=== PATIENT | female | born 1940 | race Caucasian/White ===

== ENCOUNTER 2021-06-29 14:23 | Inpatient (IN) | payer MEDICARE ==
[2021-06-29 16:05] LABS: #Basophils 0.1 thou/uL (0.0-0.2); #Eosinphils 0.1 thou/uL (0.0-0.7); #Lymphocytes 2.8 thou/uL (1.20-3.40); #Monocytes 1.3 thou/uL (0.11-0.59); #Neutrophils 7.2 thou/uL (1.40-6.50); %Basophils 0.5 % (0.0-1.0); %Eosinophils 0.5 % (0.0-10.0); %Lymphocytes 24.5 % (21.0-51.0); %Monocytes 11.5 % (0.0-10.0); Hemoglobin 11.5 g/dL (12.0-16.0); Mean Corpuscular HGB CONC 32.7 g/dL (32.0-36.0); Mean Corpuscular Hemoglobin 26.3 pg (27.0-31.0); Mean Corpuscular Volume 80.3 fL (78.0-98.0); Mean Platelet Volume 8.3 fL (7.4-10.4); Platelet Count 260 thou/uL (130-400); RBC Distribution Width 18.4 % (11.5-14.5); Red Blood Cell (RBC) Count 4.37 mill/uL (4.20-5.40); White Blood Cell (WBC) Count 11.4 thou/uL (4.8-10.8)
[2021-06-29 16:35] LABS: ALT (SGPT) 11 U/L (8-55); AST (SGOT) 21 U/L (5-34); Albumin 4.2 g/dL (3.4-4.8); Alkaline Phosphatase 64 U/L (40-110); Anion Gap 16 mmol/L (10-20); BUN (Urea Nitrogen) 25 mg/dL (9.8-20.1); Bilirubin, Total 0.2 mg/dL (0.2-1.2); Calc. Creatinine Clearance 0 mL/min (70-130); Carbon Dioxide 26 mmol/L (23-31); Chloride 85 mmol/L (98-107); Globulin 3.8 g/dL (2.4-3.5); Potassium 4.8 mmol/L (3.5-5.1); Sodium 122 mmol/L (136-145)
[2021-06-29 16:44] LABS: Glucose 50 mg/dL (83-110)
[2021-06-29 16:49] LABS: CKMB 4.3 ng/mL (0-6.6)
[2021-06-29] MEDS ORDERED: Nitroglycerin 2% Ointment 1 INCH/1 GM Packet ONE (16:49)
[2021-06-29] MEDS ORDERED: hydrALAZINE 20 MG/ML VIAL ONE (16:49)
[2021-06-29] MEDS ORDERED: Dextrose 50% Abboject 50 ML SYRINGE ONE (16:54)
[2021-06-29] MEDS ORDERED: Aspirin 325 MG TAB ONE (17:05)
[2021-06-29] MEDS ORDERED: Ondansetron PF 4 MG/2 ML Vial IVP PRN (17:34)
[2021-06-29 17:54] LABS: Bacteria/HPF 4+ HPF (None Seen); Bilirubin Negative (Negative); Blood, Urine 1+ (Negative); Clarity Turbid (Clear); Glucose, Urine (Dipstick) Normal (Negative); Ketone, Urine Negative (Negative); Leukocyte 500 Leu/uL (Negative); Nitrite Negative (Negative); Protein, Urine (Dipstick) 70 mg/dL (Neg-Trace); Squamous Epithelial 0-3 HPF (0-3); Urobilinogen Normal mg/dL (Less than 2); WBC/HPF Greater than 50 HPF (0-3); pH, Urine 6.5 (5.0-9.0)
[2021-06-29] MEDS ORDERED: Carvedilol 25 MG TAB PO SCH (18:30)
[2021-06-29] MEDS ORDERED: cloNIDine 0.1 MG TAB PO SCH (18:30)
[2021-06-29] MEDS ORDERED: MEROPENEM 1 GM/50 ML 1 GM in Premix Bag 1 BAG IVPB SCH (19:00)
[2021-06-29 19:23] LABS: Anion Gap 15 mmol/L (10-20); BUN (Urea Nitrogen) 27 mg/dL (9.8-20.1); Calc. Creatinine Clearance 0 mL/min (70-130); Calcium 9.7 mg/dL (7.8-10.44); Carbon Dioxide 26 mmol/L (23-31); Chloride 85 mmol/L (98-107); Glucose 109 mg/dL (83-110); Potassium 4.6 mmol/L (3.5-5.1); Sodium 121 mmol/L (136-145)
[2021-06-29 19:28] LABS: Troponin I 0.047 ng/mL (< 0.028)
[2021-06-29] MEDS ORDERED: Apixaban 5 MG TAB PO SCH (21:00)
[2021-06-29 21:23] LABS: SARS-CoV-2 NAA Rapid Test Not Detected (NotDetected)
[2021-06-29 21:26] LABS: Anion Gap 14 mmol/L (10-20); BUN (Urea Nitrogen) 27 mg/dL (9.8-20.1); Calc. Creatinine Clearance 0 mL/min (70-130); Calcium 9.8 mg/dL (7.8-10.44); Carbon Dioxide 28 mmol/L (23-31); Chloride 86 mmol/L (98-107); Glucose 99 mg/dL (83-110); Potassium 4.5 mmol/L (3.5-5.1); Sodium 123 mmol/L (136-145)
[2021-06-29 21:32] LABS: Troponin I 0.073 ng/mL (< 0.028)
[2021-06-29] MEDS ORDERED: cloNIDine 0.1 MG TAB ONE (22:42)
[2021-06-29] MEDS: cloNIDine 0.1 MG TAB PO SCH (22:48)
[2021-06-29 23:51] VITALS: BMI 42.3
[2021-06-30] MEDS ORDERED: MEROPENEM 1 GM/50 ML 1 GM in Premix Bag 1 BAG IVPB SCH (00:15)
[2021-06-30 02:08] LABS: Anion Gap 15 mmol/L (10-20); BUN (Urea Nitrogen) 31 mg/dL (9.8-20.1); Calc. Creatinine Clearance 51 mL/min (70-130); Calcium 10.1 mg/dL (7.8-10.44); Carbon Dioxide 27 mmol/L (23-31); Chloride 86 mmol/L (98-107); Potassium 4.2 mmol/L (3.5-5.1); Sodium 124 mmol/L (136-145)
[2021-06-30 02:13] LABS: Glucose 43 mg/dL (83-110)
[2021-06-30] MEDS ORDERED: Dextrose 5% in Water 1,000 ML IV PRN (07:47)
[2021-06-30] MEDS ORDERED: Dextrose 50% Abboject 50 ML SYRINGE SLOW IVP PRN (07:47)
[2021-06-30 08:32] LABS: Anion Gap 14 mmol/L (10-20); BUN (Urea Nitrogen) 31 mg/dL (9.8-20.1); Calc. Creatinine Clearance 46 mL/min (70-130); Calcium 9.7 mg/dL (7.8-10.44); Carbon Dioxide 28 mmol/L (23-31); Chloride 84 mmol/L (98-107); Glucose 135 mg/dL (83-110); Potassium 4.6 mmol/L (3.5-5.1); Sodium 121 mmol/L (136-145)
[2021-06-30] MEDS: MEROPENEM 1 GM/50 ML 1 GM in Premix Bag 1 BAG IVPB SCH ×2 (10:08→17:07)
[2021-06-30] MEDS: Carvedilol 6.25 MG TAB PO SCH ×2 (10:09→17:08)
[2021-06-30] MEDS ORDERED: cloNIDine 0.1 MG TAB ONE (10:10)
[2021-06-30] MEDS ORDERED: TOLVAPTAN 30 MG TAB PO SCH (10:15)
[2021-06-30 10:18] LABS: Anion Gap 17 mmol/L (10-20); BUN (Urea Nitrogen) 29 mg/dL (9.8-20.1); Calc. Creatinine Clearance 50 mL/min (70-130); Calcium 9.6 mg/dL (7.8-10.44); Carbon Dioxide 24 mmol/L (23-31); Chloride 86 mmol/L (98-107); Glucose 139 mg/dL (83-110); Potassium 4.5 mmol/L (3.5-5.1); Sodium 122 mmol/L (136-145)
[2021-06-30] MEDS: cloNIDine 0.1 MG TAB PO SCH ×3 (10:19→20:31)
[2021-06-30 13:49] LABS: Anion Gap 12 mmol/L (10-20); BUN (Urea Nitrogen) 31 mg/dL (9.8-20.1); Calc. Creatinine Clearance 48 mL/min (70-130); Calcium 9.5 mg/dL (7.8-10.44); Carbon Dioxide 30 mmol/L (23-31); Chloride 84 mmol/L (98-107); Glucose 131 mg/dL (83-110); Potassium 4.5 mmol/L (3.5-5.1); Sodium 121 mmol/L (136-145)
[2021-06-30 17:49] LABS: Anion Gap 11 mmol/L (10-20); BUN (Urea Nitrogen) 32 mg/dL (9.8-20.1); Calc. Creatinine Clearance 50 mL/min (70-130); Calcium 9.5 mg/dL (7.8-10.44); Carbon Dioxide 31 mmol/L (23-31); Chloride 83 mmol/L (98-107); Glucose 86 mg/dL (83-110); Potassium 4.3 mmol/L (3.5-5.1); Sodium 121 mmol/L (136-145)
[2021-06-30 20:17] LABS: Magnesium 1.6 mg/dL (1.6-2.6)
[2021-06-30 22:17] LABS: Anion Gap 14 mmol/L (10-20); BUN (Urea Nitrogen) 32 mg/dL (9.8-20.1); Calc. Creatinine Clearance 50 mL/min (70-130); Calcium 9.6 mg/dL (7.8-10.44); Carbon Dioxide 30 mmol/L (23-31); Chloride 84 mmol/L (98-107); Glucose 91 mg/dL (83-110); Potassium 4.8 mmol/L (3.5-5.1); Sodium 123 mmol/L (136-145)
[2021-07-01] MEDS: MEROPENEM 1 GM/50 ML 1 GM in Premix Bag 1 BAG IVPB SCH ×3 (02:34→17:07)
[2021-07-01 05:16] LABS: Anion Gap 17 mmol/L (10-20); BUN (Urea Nitrogen) 31 mg/dL (9.8-20.1); Calc. Creatinine Clearance 55 mL/min (70-130); Carbon Dioxide 26 mmol/L (23-31); Chloride 86 mmol/L (98-107); Glucose 70 mg/dL (83-110); Potassium 4.6 mmol/L (3.5-5.1); Sodium 124 mmol/L (136-145)
[2021-07-01 05:17] LABS: Calcium 9.7 mg/dL (7.8-10.44)
[2021-07-01] MEDS: hydrALAZINE 20 MG/ML VIAL SLOW IVP PRN ×2 (05:55→22:11)
[2021-07-01] MEDS ORDERED: Electrolyte Replacement Protocol 1 EACH FS PRN (06:42)
[2021-07-01] MEDS: cloNIDine 0.1 MG TAB PO SCH ×3 (09:03→22:09)
[2021-07-01] MEDS: Carvedilol 6.25 MG TAB PO SCH ×2 (09:03→17:07)
[2021-07-01] MEDS ORDERED: Tolvaptan 15 MG TAB PO SCH (11:30)
[2021-07-01] MEDS ORDERED: TOLVAPTAN 30 MG TAB PO SCH (13:30)
[2021-07-01 16:03] LABS: Anion Gap 15 mmol/L (10-20); BUN (Urea Nitrogen) 29 mg/dL (9.8-20.1); Calc. Creatinine Clearance 57 mL/min (70-130); Carbon Dioxide 29 mmol/L (23-31); Chloride 85 mmol/L (98-107); Glucose 125 mg/dL (83-110); Potassium 4.8 mmol/L (3.5-5.1); Sodium 124 mmol/L (136-145)
[2021-07-01 19:51] LABS: Anion Gap 14 mmol/L (10-20); BUN (Urea Nitrogen) 31 mg/dL (9.8-20.1); Calc. Creatinine Clearance 55 mL/min (70-130); Calcium 9.6 mg/dL (7.8-10.44); Carbon Dioxide 26 mmol/L (23-31); Chloride 85 mmol/L (98-107); Glucose 186 mg/dL (83-110); Magnesium 1.7 mg/dL (1.6-2.6); Potassium 4.7 mmol/L (3.5-5.1); Sodium 120 mmol/L (136-145)
[2021-07-01 22:27] LABS: Lactic Acid 0.7 mmol/L (0.5-2.2)
[2021-07-01 22:31] LABS: ALT (SGPT) 17 U/L (8-55); AST (SGOT) 27 U/L (5-34); Albumin 3.8 g/dL (3.4-4.8); Alkaline Phosphatase 74 U/L (40-110); Anion Gap 16 mmol/L (10-20); BUN (Urea Nitrogen) 32 mg/dL (9.8-20.1); Bilirubin, Total 0.3 mg/dL (0.2-1.2); Calc. Creatinine Clearance 54 mL/min (70-130); Calcium 9.7 mg/dL (7.8-10.44); Carbon Dioxide 26 mmol/L (23-31); Chloride 86 mmol/L (98-107); Globulin 3.3 g/dL (2.4-3.5); Glucose 163 mg/dL (83-110); Potassium 4.5 mmol/L (3.5-5.1); Protein, Total 7.1 g/dL (5.8-8.1); Sodium 123 mmol/L (136-145)
[2021-07-01 22:41] LABS: Band 6 % (5-11); Eosinophils 3 % (0-10); Hemoglobin 10.4 g/dL (12.0-16.0); Lymphocytes 24 % (21-51); MDiff Complete? YES; Mean Corpuscular Hemoglobin 26.4 pg (27.0-31.0); Mean Corpuscular Volume 82.7 fL (78.0-98.0); Mean Platelet Volume 7.9 fL (7.4-10.4); Monocytes 12 % (0-10); Neutrophil 55 % (42-75); Platelet Count 223 thou/uL (130-400); RBC Distribution Width 18.3 % (11.5-14.5); Red Blood Cell (RBC) Count 3.92 mill/uL (4.20-5.40); White Blood Cell (WBC) Count 5.9 thou/uL (4.8-10.8)
[2021-07-01] MEDS ORDERED: Furosemide 20 MG/2 ML VIAL SLOW IVP SCH (22:45)
[2021-07-01 22:58] LABS: Troponin I 0.091 ng/mL (< 0.028)
[2021-07-01] MEDS ORDERED: Sodium Chloride 0.9% 1,000 ML IV SCH (23:00)
[2021-07-02] MEDS: MEROPENEM 1 GM/50 ML 1 GM in Premix Bag 1 BAG IVPB SCH ×3 (00:06→16:59)
[2021-07-02] MEDS: hydrALAZINE 20 MG/ML VIAL SLOW IVP PRN (00:18)
[2021-07-02] MEDS ORDERED: Labetalol HCl 100 MG/20 ML VIAL SLOW IVP PRN (04:34)
[2021-07-02 05:07] LABS: Anion Gap 15 mmol/L (10-20); BUN (Urea Nitrogen) 33 mg/dL (9.8-20.1); Calc. Creatinine Clearance 59 mL/min (70-130); Carbon Dioxide 27 mmol/L (23-31); Chloride 88 mmol/L (98-107); Glucose 142 mg/dL (83-110); Potassium 4.4 mmol/L (3.5-5.1); Sodium 126 mmol/L (136-145)
[2021-07-02] MEDS ORDERED: Non-Formulary Item 1 EACH (Levothyroxine Sodium [Levothyroxine] 75 MCG Capsule) PO SCH (09:00)
[2021-07-02] MEDS ORDERED: Spironolactone 100 MG TAB PO SCH (09:00)
[2021-07-02] MEDS: cloNIDine 0.1 MG TAB PO SCH ×3 (09:32→21:39)
[2021-07-02] MEDS: Oxybutynin 5 MG TAB PO SCH (09:33)
[2021-07-02] MEDS: Apixaban 5 MG TAB PO SCH ×2 (09:33→21:40)
[2021-07-02] MEDS: predniSONE 5 MG TAB PO SCH (09:33)
[2021-07-02] MEDS: Carvedilol 6.25 MG TAB PO SCH ×2 (09:33→16:59)
[2021-07-02] MEDS ORDERED: Alendronate Sodium 70 mg Tablet PO SCH (11:00)
[2021-07-02] MEDS: Spironolactone 100 MG TAB PO SCH (21:40)
[2021-07-02] MEDS: LACTINEX 1 TAB PO SCH (21:40)
[2021-07-03] MEDS: MEROPENEM 1 GM/50 ML 1 GM in Premix Bag 1 BAG IVPB SCH ×2 (00:08→09:42)
[2021-07-03 04:53] LABS: Hemoglobin 9.9 g/dL (12.0-16.0); Mean Corpuscular HGB CONC 31.6 g/dL (32.0-36.0); Mean Corpuscular Hemoglobin 26.1 pg (27.0-31.0); Mean Corpuscular Volume 82.6 fL (78.0-98.0); Mean Platelet Volume 7.8 fL (7.4-10.4); Platelet Count 211 thou/uL (130-400); RBC Distribution Width 18.6 % (11.5-14.5); Red Blood Cell (RBC) Count 3.79 mill/uL (4.20-5.40); White Blood Cell (WBC) Count 4.5 thou/uL (4.8-10.8)
[2021-07-03 04:58] LABS: Anion Gap 14 mmol/L (10-20); BUN (Urea Nitrogen) 39 mg/dL (9.8-20.1); Calc. Creatinine Clearance 50 mL/min (70-130); Calcium 9.9 mg/dL (7.8-10.44); Carbon Dioxide 29 mmol/L (23-31); Chloride 89 mmol/L (98-107); Glucose 130 mg/dL (83-110); Potassium 4.5 mmol/L (3.5-5.1); Sodium 127 mmol/L (136-145)
[2021-07-03] MEDS: Levothyroxine Sodium 75 MCG TAB PO SCH (05:11)
[2021-07-03 05:29] LABS: Band 2 % (5-11); Eosinophils 7 % (0-10); Lymphocytes 28 % (21-51); MDiff Complete? YES; Metamyelocyte 1 % (0-0); Monocytes 12 % (0-10); Neutrophil 50 % (42-75)
[2021-07-03] MEDS: sulfaSALAzine 500 MG TAB PO SCH (09:43)
[2021-07-03] MEDS: LACTINEX 1 TAB PO SCH ×2 (09:44→21:28)
[2021-07-03] MEDS: cloNIDine 0.1 MG TAB PO SCH ×3 (09:44→21:27)
[2021-07-03] MEDS: Apixaban 5 MG TAB PO SCH ×2 (09:45→21:27)
[2021-07-03] MEDS: Carvedilol 6.25 MG TAB PO SCH ×2 (09:45→17:25)
[2021-07-03] MEDS: Spironolactone 100 MG TAB PO SCH ×2 (09:45→21:28)
[2021-07-03] MEDS: Oxybutynin 5 MG TAB PO SCH (09:45)
[2021-07-03] MEDS: predniSONE 5 MG TAB PO SCH (09:47)
[2021-07-03] MEDS ORDERED: Sodium Chloride 1 GM TAB PO SCH (11:30)
[2021-07-03] MEDS: Cefepime 1 GM in Sodium Chloride 0.9% 100 ML IVPB SCH (13:36)
[2021-07-03] MEDS: Sodium Chloride 1 GM TAB PO SCH ×2 (21:27→21:28)
[2021-07-04] MEDS ORDERED: Sodium Chloride 0.9% 10 ML ONE (01:09)
[2021-07-04] MEDS: Cefepime 1 GM in Sodium Chloride 0.9% 100 ML IVPB SCH ×2 (01:12→13:56)
[2021-07-04 04:38] LABS: Hemoglobin 9.4 g/dL (12.0-16.0); Mean Corpuscular HGB CONC 31.7 g/dL (32.0-36.0); Mean Corpuscular Hemoglobin 26.3 pg (27.0-31.0); Mean Platelet Volume 8.1 fL (7.4-10.4); Platelet Count 202 thou/uL (130-400); RBC Distribution Width 18.6 % (11.5-14.5); Red Blood Cell (RBC) Count 3.57 mill/uL (4.20-5.40); White Blood Cell (WBC) Count 3.7 thou/uL (4.8-10.8)
[2021-07-04 04:48] LABS: Anion Gap 13 mmol/L (10-20); BUN (Urea Nitrogen) 37 mg/dL (9.8-20.1); Calc. Creatinine Clearance 58 mL/min (70-130); Calcium 9.9 mg/dL (7.8-10.44); Carbon Dioxide 28 mmol/L (23-31); Chloride 93 mmol/L (98-107); Glucose 151 mg/dL (83-110); Potassium 4.9 mmol/L (3.5-5.1); Sodium 129 mmol/L (136-145)
[2021-07-04] MEDS: Levothyroxine Sodium 75 MCG TAB PO SCH (05:54)
[2021-07-04 06:01] LABS: Band 13 % (5-11); Eosinophils 3 % (0-10); Lymphocytes 36 % (21-51); MDiff Complete? YES; Monocytes 9 % (0-10); Neutrophil 38 % (42-75)
[2021-07-04] MEDS: cloNIDine 0.1 MG TAB PO SCH ×3 (08:23→20:35)
[2021-07-04] MEDS: Carvedilol 6.25 MG TAB PO SCH (08:25)
[2021-07-04] MEDS: LACTINEX 1 TAB PO SCH ×2 (08:25→20:39)
[2021-07-04] MEDS: Oxybutynin 5 MG TAB PO SCH (08:25)
[2021-07-04] MEDS: predniSONE 5 MG TAB PO SCH (08:25)
[2021-07-04] MEDS: Apixaban 5 MG TAB PO SCH ×2 (08:25→20:39)
[2021-07-04] MEDS: Spironolactone 100 MG TAB PO SCH ×2 (08:25→20:39)
[2021-07-04] MEDS: sulfaSALAzine 500 MG TAB PO SCH (08:25)
[2021-07-04] MEDS: Sodium Chloride 1 GM TAB PO SCH ×4 (08:26→20:45)
[2021-07-05] MEDS: Cefepime 1 GM in Sodium Chloride 0.9% 100 ML IVPB SCH ×2 (01:06→14:57)
[2021-07-05 04:37] LABS: Hemoglobin 9.2 g/dL (12.0-16.0); Mean Corpuscular HGB CONC 32.1 g/dL (32.0-36.0); Mean Corpuscular Hemoglobin 26.8 pg (27.0-31.0); Mean Corpuscular Volume 83.6 fL (78.0-98.0); Mean Platelet Volume 7.8 fL (7.4-10.4); Platelet Count 170 thou/uL (130-400); RBC Distribution Width 18.5 % (11.5-14.5); Red Blood Cell (RBC) Count 3.44 mill/uL (4.20-5.40); White Blood Cell (WBC) Count 4.3 thou/uL (4.8-10.8)
[2021-07-05 04:51] LABS: Anion Gap 10 mmol/L (10-20); BUN (Urea Nitrogen) 28 mg/dL (9.8-20.1); Calc. Creatinine Clearance 72 mL/min (70-130); Carbon Dioxide 30 mmol/L (23-31); Chloride 95 mmol/L (98-107); Glucose 139 mg/dL (83-110); Potassium 4.4 mmol/L (3.5-5.1); Sodium 131 mmol/L (136-145)
[2021-07-05 05:04] LABS: Band 5 % (5-11); Lymphocytes 38 % (21-51); MDiff Complete? YES; Monocytes 15 % (0-10); Neutrophil 42 % (42-75)
[2021-07-05] MEDS: Levothyroxine Sodium 75 MCG TAB PO SCH (05:55)
[2021-07-05] MEDS: Sodium Chloride 1 GM TAB PO SCH ×4 (09:03→21:05)
[2021-07-05] MEDS: cloNIDine 0.1 MG TAB PO SCH ×3 (09:03→21:03)
[2021-07-05] MEDS: Oxybutynin 5 MG TAB PO SCH (09:04)
[2021-07-05] MEDS: Apixaban 5 MG TAB PO SCH ×2 (09:04→21:04)
[2021-07-05] MEDS: Spironolactone 100 MG TAB PO SCH ×2 (09:05→21:04)
[2021-07-05] MEDS: sulfaSALAzine 500 MG TAB PO SCH (09:05)
[2021-07-05] MEDS: predniSONE 5 MG TAB PO SCH (09:05)
[2021-07-05] MEDS: LACTINEX 1 TAB PO SCH ×2 (09:37→21:04)
[2021-07-05] MEDS ORDERED: Amlodipine 5 MG TAB PO SCH (17:00)
[2021-07-06] MEDS: Cefepime 1 GM in Sodium Chloride 0.9% 100 ML IVPB SCH ×2 (00:31→11:57)
[2021-07-06 04:38] LABS: Anion Gap 14 mmol/L (10-20); BUN (Urea Nitrogen) 22 mg/dL (9.8-20.1); Calc. Creatinine Clearance 77 mL/min (70-130); Carbon Dioxide 23 mmol/L (23-31); Chloride 100 mmol/L (98-107); Potassium 4.6 mmol/L (3.5-5.1); Sodium 132 mmol/L (136-145)
[2021-07-06 04:39] LABS: Glucose 137 mg/dL (83-110)
[2021-07-06 05:08] LABS: Eosinophils 1 % (0-10); Hemoglobin 9.4 g/dL (12.0-16.0); Hypochromia SLIGHT = 6-15 cells (100X) (0-5/hpf); Lymphocytes 41 % (21-51); MDiff Complete? YES; Mean Corpuscular HGB CONC 31.7 g/dL (32.0-36.0); Mean Corpuscular Hemoglobin 26.6 pg (27.0-31.0); Monocytes 12 % (0-10); Neutrophil 36 % (42-75); Platelet Count 188 thou/uL (130-400); Platelet Morphology Comment Appears Adequate; RBC Distribution Width 18.6 % (11.5-14.5); Reactive Lymphocytes 10 % (0-10); Red Blood Cell (RBC) Count 3.51 mill/uL (4.20-5.40); White Blood Cell (WBC) Count 4.1 thou/uL (4.8-10.8)
[2021-07-06] MEDS: Levothyroxine Sodium 75 MCG TAB PO SCH (05:19)
[2021-07-06] MEDS: LACTINEX 1 TAB PO SCH (08:16)
[2021-07-06] MEDS: Apixaban 5 MG TAB PO SCH (08:16)
[2021-07-06] MEDS: sulfaSALAzine 500 MG TAB PO SCH (08:16)
[2021-07-06] MEDS: Oxybutynin 5 MG TAB PO SCH (08:16)
[2021-07-06] MEDS: cloNIDine 0.1 MG TAB PO SCH (08:16)
[2021-07-06] MEDS: predniSONE 5 MG TAB PO SCH (08:17)
[2021-07-06] MEDS: Spironolactone 100 MG TAB PO SCH (08:17)
[2021-07-06] MEDS: Sodium Chloride 1 GM TAB PO SCH ×2 (08:17→08:34)
[2021-07-06 11:15] VITALS: BP 168/80; TEMP 98.2
== END 2021-07-06 15:03 | DRG 637 ==
LOC: ERS 14:23 → ERHOLD 17:03 → 2NO 06-30 15:02
PROVIDERS: ADMIT Internal Medicine; ATTEND Family Medicine
DX: E11.649 Type 2 diabetes mellitus with hypoglycemia without coma (principal); G93.41 Metabolic encephalopathy; E87.1 Hypo-osmolality and hyponatremia; N39.0 Urinary tract infection, site not specified; I13.0 Hypertensive heart and chronic kidney disease with heart failure and stage 1 through stage 4 chronic kidney disease, or unspecified chronic kidney disease; I48.20 Chronic atrial fibrillation, unspecified; Z68.41 Body mass index [BMI] 40.0-44.9, adult; Z20.822 Contact with and (suspected) exposure to COVID-19; W18.30XA Fall on same level, unspecified, initial encounter; S00.83XA Contusion of other part of head, initial encounter; J44.9 Chronic obstructive pulmonary disease, unspecified; Z96.0 Presence of urogenital implants; E66.01 Morbid (severe) obesity due to excess calories; I16.0 Hypertensive urgency; I50.9 Heart failure, unspecified; D63.1 Anemia in chronic kidney disease; N18.30 Chronic kidney disease, stage 3 unspecified; E11.22 Type 2 diabetes mellitus with diabetic chronic kidney disease; G47.33 Obstructive sleep apnea (adult) (pediatric); N17.9 Acute kidney failure, unspecified; B96.5 Pseudomonas (aeruginosa) (mallei) (pseudomallei) as the cause of diseases classified elsewhere; M06.9 Rheumatoid arthritis, unspecified; M85.80 Other specified disorders of bone density and structure, unspecified site; I44.0 Atrioventricular block, first degree; Z79.4 Long term (current) use of insulin; Z87.440 Personal history of urinary (tract) infections; Z90.710 Acquired absence of both cervix and uterus; Z90.49 Acquired absence of other specified parts of digestive tract; Z90.10 Acquired absence of unspecified breast and nipple; Z79.52 Long term (current) use of systemic steroids; Z79.899 Other long term (current) drug therapy; Z79.01 Long term (current) use of anticoagulants; Z85.038 Personal history of other malignant neoplasm of large intestine; Z92.21 Personal history of antineoplastic chemotherapy; Z92.3 Personal history of irradiation; Z86.73 Personal history of transient ischemic attack (TIA), and cerebral infarction without residual deficits; Z82.49 Family history of ischemic heart disease and other diseases of the circulatory system
CPT/HCPCS: 0240U; 36415; 36416; 51701; 70450; 80048; 80053; 81003; 81015; 82553; 83605; 83735; 83880; 83930; 83935; 84300; 84443; 84484; 85025; 87040; 87077; 87086; 87186; 93005; 93010; 93306; 96374; 96375; J0360; J0692; J1940; J2185; J3490; J7512

== ENCOUNTER 2021-11-01 06:14 | Inpatient (IN) | payer MEDICARE ==
[2021-11-01 07:08] LABS: #Eosinphils 0.1 thou/uL (0.0-0.7); #Lymphocytes 1.9 thou/uL (1.20-3.40); #Monocytes 0.9 thou/uL (0.11-0.59); #Neutrophils 3.5 thou/uL (1.40-6.50); %Basophils 0.3 % (0.0-1.0); %Lymphocytes 30.2 % (21.0-51.0); %Neutrophils 54.5 % (42.0-75.0); Hemoglobin 8.1 g/dL (12.0-16.0); Mean Corpuscular HGB CONC 30.8 g/dL (32.0-36.0); Mean Corpuscular Hemoglobin 24.9 pg (27.0-31.0); Mean Platelet Volume 8.2 fL (7.4-10.4); Platelet Count 222 thou/uL (130-400); Red Blood Cell (RBC) Count 3.23 mill/uL (4.20-5.40); White Blood Cell (WBC) Count 6.4 thou/uL (4.8-10.8)
[2021-11-01 07:28] LABS: ALT (SGPT) 12 U/L (8-55); AST (SGOT) 15 U/L (5-34); Albumin 3.5 g/dL (3.4-4.8); Alkaline Phosphatase 77 U/L (40-110); Anion Gap 16 mmol/L (10-20); BUN (Urea Nitrogen) 25 mg/dL (9.8-20.1); Bilirubin, Total 0.2 mg/dL (0.2-1.2); Calc. Creatinine Clearance 0 mL/min (70-130); Calcium 8.4 mg/dL (7.8-10.44); Carbon Dioxide 24 mmol/L (23-31); Chloride 99 mmol/L (98-107); Globulin 3.1 g/dL (2.4-3.5); Glucose 306 mg/dL (83-110); Lipase 29 U/L (8-78); Magnesium 1.3 mg/dL (1.6-2.6); Potassium 4.6 mmol/L (3.5-5.1); Protein, Total 6.6 g/dL (5.8-8.1); Sodium 134 mmol/L (136-145)
[2021-11-01 08:16] LABS: Bacteria/HPF 2+ HPF (None Seen); Bilirubin Negative (Negative); Blood, Urine Negative (Negative); Clarity Turbid (Clear); Glucose, Urine (Dipstick) 300 mg/dL (Negative); Ketone, Urine Negative (Negative); Leukocyte 500 Leu/uL (Negative); Nitrite 1+ (Negative); Protein, Urine (Dipstick) Negative (Neg-Trace); RBC/HPF 0-3 HPF (0-3); Specific Gravity, Urine 1.007 (1.002-1.036); Squamous Epithelial None Seen HPF (0-3); Urobilinogen Normal mg/dL (Less than 2); WBC/HPF Greater than 50 HPF (0-3); pH, Urine 6.5 (5.0-9.0)
[2021-11-01] MEDS ORDERED: cefTRIAXone\\ROCEPHIN 2 GM VIAL ONE (09:34)
[2021-11-01 10:31] LABS: CKMB 2.1 ng/mL (0-6.6)
[2021-11-01] MEDS ORDERED: Dextrose 5% in Water 1,000 ML IV PRN (12:26)
[2021-11-01] MEDS ORDERED: Dextrose 50% Abboject 50 ML SYRINGE SLOW IVP PRN (12:26)
[2021-11-01] MEDS ORDERED: HumaLOG 300 UNITS/3 ML VIAL SC PRN (12:26)
[2021-11-01] MEDS ORDERED: Magnesium 2 GM/50 ML 2 GM in Premix Bag 1 BAG IVPB SCH (12:30)
[2021-11-01 13:12] LABS: Troponin I 0.042 ng/mL (< 0.028)
[2021-11-01] MEDS ORDERED: Magnesium 2 GM/50 ML BAG (IN WATER) ONE (14:12)
[2021-11-01 16:02] LABS: Troponin I 0.047 ng/mL (< 0.028)
[2021-11-01] MEDS ORDERED: Polyethylene Glycol 3350 17 GM Packet PO PRN (16:09)
[2021-11-01] MEDS ORDERED: Alendronate Sodium 70 mg Tablet PO SCH (16:15)
[2021-11-01 20:55] VITALS: BMI 46.4
[2021-11-01] MEDS: Spironolactone 100 MG TAB PO SCH (21:50)
[2021-11-01] MEDS: Oxybutynin 5 MG TAB PO SCH (21:50)
[2021-11-01] MEDS: Apixaban 5 MG TAB PO SCH (21:50)
[2021-11-01] MEDS: cloNIDine 0.1 MG TAB PO SCH (21:50)
[2021-11-01] MEDS: Carvedilol 6.25 MG TAB PO SCH (21:51)
[2021-11-01] MEDS: DULoxetine 60 MG CAP PO SCH (21:51)
[2021-11-01] MEDS: sulfaSALAzine 500 MG TAB PO SCH (21:51)
[2021-11-01] MEDS: Lantus 1000 UNITS/10 ML VIAL SC SCH (21:53)
[2021-11-02] MEDS: Levothyroxine Sodium 75 MCG TAB PO SCH (05:25)
[2021-11-02 05:31] LABS: Magnesium 1.9 mg/dL (1.6-2.6)
[2021-11-02] MEDS ORDERED: Cepastat Lozenges 1 LOZ PO PRN (06:45)
[2021-11-02] MEDS ORDERED: GUAIFENESIN SF SOLN 200 MG/10 ML UDCUP PO PRN (06:45)
[2021-11-02] MEDS ORDERED: Loratadine 10 MG TAB PO PRN (06:45)
[2021-11-02] MEDS ORDERED: Ondansetron ODT 4 MG TAB SL PRN (06:45)
[2021-11-02] MEDS ORDERED: Hydrocerin (Eucerin) Cream 120 gm Jar TOP PRN (06:45)
[2021-11-02] MEDS ORDERED: Artificial Tear Sol 15 ML BOT EA EYE PRN (06:45)
[2021-11-02] MEDS ORDERED: Sodium Chloride 0.65% Nasal 44 ML BOT EA NARE PRN (06:45)
[2021-11-02] MEDS ORDERED: HYDROcodone/Acetaminophen 5/325 mg Tablet PO PRN (06:45)
[2021-11-02] MEDS ORDERED: Ondansetron PF 4 MG/2 ML Vial IVP PRN (06:45)
[2021-11-02] MEDS ORDERED: hydrALAZINE 20 MG/ML VIAL SLOW IVP PRN (06:45)
[2021-11-02] MEDS ORDERED: Loperamide HCl 2 MG CAP PO PRN (06:45)
[2021-11-02] MEDS ORDERED: Calcium Carbonate 500 MG ChewTAB PO PRN (06:45)
[2021-11-02] MEDS ORDERED: Senokot S 8.6-50 MG TAB PO PRN (06:45)
[2021-11-02] MEDS ORDERED: Bisacodyl 5 MG TAB PO PRN (06:45)
[2021-11-02] MEDS ORDERED: Melatonin 3 MG TAB PO PRN (06:46)
[2021-11-02] MEDS: Mometasone 100 MCG/PUFF (1 INHALER) INH SCH ×2 (07:42→18:25)
[2021-11-02] MEDS: Carvedilol 6.25 MG TAB PO SCH ×2 (09:17→20:10)
[2021-11-02] MEDS: Apixaban 5 MG TAB PO SCH ×2 (09:17→20:10)
[2021-11-02] MEDS: cloNIDine 0.1 MG TAB PO SCH ×3 (09:17→20:11)
[2021-11-02] MEDS: DULoxetine 60 MG CAP PO SCH ×2 (09:17→20:12)
[2021-11-02] MEDS: busPIRone HCl 10 MG TAB PO SCH (09:17)
[2021-11-02] MEDS: Oxybutynin 5 MG TAB PO SCH ×2 (09:17→20:13)
[2021-11-02] MEDS: Furosemide 40 MG TAB PO SCH (09:18)
[2021-11-02] MEDS: predniSONE 5 MG TAB PO SCH (09:18)
[2021-11-02] MEDS: Lantus 1000 UNITS/10 ML VIAL SC SCH ×2 (09:24→20:18)
[2021-11-02] MEDS ORDERED: MEROPENEM 1 GM/50 ML 1 GM in Premix Bag 1 BAG IVPB SCH (09:30)
[2021-11-02] MEDS ORDERED: Meropenem 1 GM in Sodium Chloride 0.9% 100 ML IVPB SCH ×2 (09:30→14:00)
[2021-11-02] MEDS ORDERED: cefTRIAXone\\ROCEPHIN 2 GM in Sodium Chloride 0.9% 100 ML IVPB SCH (10:00)
[2021-11-02] MEDS: sulfaSALAzine 500 MG TAB PO SCH ×2 (10:19→20:13)
[2021-11-02 11:22] LABS: SARS-CoV-2 PCR by NAA Not Detected (NotDetected)
[2021-11-02] MEDS: HumaLOG 300 UNITS/3 ML VIAL SC PRN ×2 (11:36→17:45)
[2021-11-02] MEDS: Spironolactone 100 MG TAB PO SCH (20:13)
[2021-11-02] MEDS: Meropenem 1 GM in Sodium Chloride 0.9% 100 ML IVPB SCH (20:15)
[2021-11-03] MEDS: Levothyroxine Sodium 75 MCG TAB PO SCH (04:58)
[2021-11-03 06:29] LABS: Mean Corpuscular HGB CONC 29.5 g/dL (32.0-36.0); Mean Corpuscular Hemoglobin 23.9 pg (27.0-31.0); Mean Corpuscular Volume 80.8 fL (78.0-98.0); Mean Platelet Volume 7.8 fL (7.4-10.4); Platelet Count 234 thou/uL (130-400); RBC Distribution Width 17.8 % (11.5-14.5); Red Blood Cell (RBC) Count 3.36 mill/uL (4.20-5.40)
[2021-11-03] MEDS: Mometasone 100 MCG/PUFF (1 INHALER) INH SCH ×2 (06:47→18:51)
[2021-11-03 06:57] LABS: Anion Gap 14 mmol/L (10-20); BUN (Urea Nitrogen) 19 mg/dL (9.8-20.1); Band 5 % (5-11); Calc. Creatinine Clearance 72 mL/min (70-130); Calcium 9.7 mg/dL (7.8-10.44); Carbon Dioxide 28 mmol/L (23-31); Chloride 97 mmol/L (98-107); Glucose 180 mg/dL (83-110); Lymphocytes 32 % (21-51); MDiff Complete? YES; Monocytes 7 % (0-10); Neutrophil 56 % (42-75); Potassium 4.5 mmol/L (3.5-5.1); Sodium 134 mmol/L (136-145)
[2021-11-03] MEDS: predniSONE 5 MG TAB PO SCH (09:08)
[2021-11-03] MEDS: sulfaSALAzine 500 MG TAB PO SCH ×2 (09:08→20:11)
[2021-11-03] MEDS: Carvedilol 6.25 MG TAB PO SCH ×2 (09:08→20:09)
[2021-11-03] MEDS: Oxybutynin 5 MG TAB PO SCH ×2 (09:08→20:11)
[2021-11-03] MEDS: DULoxetine 60 MG CAP PO SCH ×2 (09:09→20:11)
[2021-11-03] MEDS: Furosemide 40 MG TAB PO SCH (09:09)
[2021-11-03] MEDS: Apixaban 5 MG TAB PO SCH ×2 (09:09→20:09)
[2021-11-03] MEDS: busPIRone HCl 10 MG TAB PO SCH (09:09)
[2021-11-03] MEDS: cloNIDine 0.1 MG TAB PO SCH ×3 (09:09→20:09)
[2021-11-03] MEDS: Lantus 1000 UNITS/10 ML VIAL SC SCH ×2 (09:13→20:15)
[2021-11-03] MEDS: Meropenem 1 GM in Sodium Chloride 0.9% 100 ML IVPB SCH ×2 (10:40→20:12)
[2021-11-03] MEDS: HumaLOG 300 UNITS/3 ML VIAL SC PRN ×2 (12:37→18:05)
[2021-11-03] MEDS: Spironolactone 100 MG TAB PO SCH (20:11)
[2021-11-04] MEDS: Levothyroxine Sodium 75 MCG TAB PO SCH (05:41)
[2021-11-04] MEDS: HumaLOG 300 UNITS/3 ML VIAL SC PRN ×2 (05:42→12:45)
[2021-11-04] MEDS: Mometasone 100 MCG/PUFF (1 INHALER) INH SCH (06:20)
[2021-11-04 07:16] LABS: Anion Gap 12 mmol/L (10-20); BUN (Urea Nitrogen) 21 mg/dL (9.8-20.1); Calc. Creatinine Clearance 73 mL/min (70-130); Calcium 9.5 mg/dL (7.8-10.44); Carbon Dioxide 32 mmol/L (23-31); Chloride 93 mmol/L (98-107); Glucose 220 mg/dL (83-110); Potassium 4.2 mmol/L (3.5-5.1); Sodium 133 mmol/L (136-145)
[2021-11-04 07:51] LABS: Band 2 % (5-11); Eosinophils 1 % (0-10); Hemoglobin 7.8 g/dL (12.0-16.0); Lymphocytes 33 % (21-51); MDiff Complete? YES; Mean Corpuscular HGB CONC 30.7 g/dL (32.0-36.0); Mean Corpuscular Hemoglobin 24.9 pg (27.0-31.0); Mean Corpuscular Volume 81.1 fL (78.0-98.0); Mean Platelet Volume 7.7 fL (7.4-10.4); Monocytes 10 % (0-10); Neutrophil 54 % (42-75); Platelet Count 220 thou/uL (130-400); RBC Distribution Width 17.8 % (11.5-14.5); Red Blood Cell (RBC) Count 3.11 mill/uL (4.20-5.40); White Blood Cell (WBC) Count 3.8 thou/uL (4.8-10.8)
[2021-11-04] MEDS: sulfaSALAzine 500 MG TAB PO SCH (08:26)
[2021-11-04] MEDS: Apixaban 5 MG TAB PO SCH (08:26)
[2021-11-04] MEDS: DULoxetine 60 MG CAP PO SCH (08:26)
[2021-11-04] MEDS: cloNIDine 0.1 MG TAB PO SCH (08:26)
[2021-11-04] MEDS: Oxybutynin 5 MG TAB PO SCH (08:26)
[2021-11-04] MEDS: predniSONE 5 MG TAB PO SCH (08:26)
[2021-11-04] MEDS: Lantus 1000 UNITS/10 ML VIAL SC SCH (08:27)
[2021-11-04] MEDS: Carvedilol 6.25 MG TAB PO SCH (08:27)
[2021-11-04] MEDS: Furosemide 40 MG TAB PO SCH (08:27)
[2021-11-04] MEDS: busPIRone HCl 10 MG TAB PO SCH (08:27)
[2021-11-04] MEDS: Meropenem 1 GM in Sodium Chloride 0.9% 100 ML IVPB SCH (10:40)
[2021-11-04 13:47] VITALS: BP 156/75; TEMP 97.9
== END 2021-11-04 14:32 | disposition home or self-care (01) | DRG 689 ==
LOC: ERS 06:14 → ERHOLD 11:02 → 2NO 20:34 → T4-A 11-02 12:44
PROVIDERS: ADMIT Family Medicine; ATTEND Internal Medicine
DX: N39.0 Urinary tract infection, site not specified (principal); Z20.822 Contact with and (suspected) exposure to COVID-19; G93.41 Metabolic encephalopathy; Z68.42 Body mass index [BMI] 45.0-49.9, adult; G47.33 Obstructive sleep apnea (adult) (pediatric); J44.9 Chronic obstructive pulmonary disease, unspecified; E03.9 Hypothyroidism, unspecified; I50.9 Heart failure, unspecified; M06.9 Rheumatoid arthritis, unspecified; B96.1 Klebsiella pneumoniae [K. pneumoniae] as the cause of diseases classified elsewhere; I48.0 Paroxysmal atrial fibrillation; R77.8 Other specified abnormalities of plasma proteins; I49.3 Ventricular premature depolarization; E11.65 Type 2 diabetes mellitus with hyperglycemia; I11.0 Hypertensive heart disease with heart failure; F41.9 Anxiety disorder, unspecified; F32.A Depression, unspecified; E66.01 Morbid (severe) obesity due to excess calories; M81.0 Age-related osteoporosis without current pathological fracture; Z86.711 Personal history of pulmonary embolism; Z85.038 Personal history of other malignant neoplasm of large intestine; Z87.440 Personal history of urinary (tract) infections; Z90.710 Acquired absence of both cervix and uterus; Z98.890 Other specified postprocedural states; Z90.49 Acquired absence of other specified parts of digestive tract; Z99.81 Dependence on supplemental oxygen; Z79.899 Other long term (current) drug therapy; Z79.84 Long term (current) use of oral hypoglycemic drugs; Z79.4 Long term (current) use of insulin; Z79.890 Hormone replacement therapy; Z99.89 Dependence on other enabling machines and devices
CPT/HCPCS: 36415; 36416; 70450; 71045; 74176; 80048; 80053; 81003; 81015; 82553; 83605; 83690; 83735; 83880; 84443; 84484; 85025; 87040; 87077; 87086; 87186; 93005; 94640; 96365; J0360; J0696; J1815; J2185; J3475; J3490; J7512; J7620; U0003; U0005